=== PATIENT | female | born 1995 | race Caucasian/White ===

== ENCOUNTER 2021-06-29 20:56 | Emergency (ER) | payer OTHER, SELFPAY ==
--- NOTE | ~2021-06-29 | CT_ITS ---
EXAMINATION: CT abdomen pelvis wo con DATE: 06/30/2021 00:23 INDICATION: Bilateral flank pain, dysuria TECHNIQUE: Computed tomography (CT) of the abdomen and pelvis was performed without intravenous contr ast. Automated exposure control and iterative reconstruction technique were employed. Exam dose: 194 .32 mGy-cm total exam DLP. COMPARISON: None. FINDINGS: Minimal bilateral lower lobe dependent atelectasis. Normal heart size. No pericardial or pleural effusion. The liver, gallbladder, bile ducts, spleen, pancreas and pancreatic duct are unremarkable. Normal morphology of the adrenal glands. No renal mass lesion or urinary tract calculus or hydroureteronephrosis is evident. The urinary bladd er is unremarkable. Approximately 3.5 x 3.2 x 2.9 cm circumscribed heterogeneous predominantly fat attenuating lesion in the left adnexa is likely due to dermoid. Retroverted uterus. Normal caliber of the abdominal aorta. No intraperitoneal or retroperitoneal or pelvic mass lesion or adenopathy or ascites. Minimal colonic diverticulosis. No CT evidence of diverticulitis. No bowel obstruction, bowel wall th ickening, pneumatosis or intraperitoneal free air. Small fat-containing umbilical hernia. IMPRESSION: Left ovarian dermoid Retroverted uterus Reviewed, dictated and finalized at [facility]. Reviewed, dictated and finalized at [facility].
[2021-06-29 21:40] VITALS: BP 118/71; PULSE 113; RESP 14; TEMP 37; O2SAT 100
[2021-06-29 22:45] VITALS: BP 117/74; PULSE 99; RESP 16; O2SAT 99
[2021-06-29 22:51] LABS: Basophils Absolute Auto 0.1 K/mm3 (0.0-0.1); Basophils Percent Auto 0.7 % (0.2-1.2); Eosinophils Absolute Auto 0.2 K/mm3 (0-0.3); Eosinophils Percent Auto 3.4 % (0-4.4); Hematocrit 35.6 % (37.0-47.0); Immature Granulocyte Absolute 0.02 K/mm3 (0.00-0.031); Immature Granulocyte Percent A 0.3 % (0-0.5); Lymphocytes Absolute Auto 1.56 K/mm3 (0.9-3.2); Lymphocytes Percent Auto 22.9 % (18.3-44.2); Mean Corpuscular HGB Conc 28.1 g/dl (32-36); Mean Corpuscular Hemoglobin 20.2 pg (26-34); Mean Corpuscular Volume 71.8 fl (80-100); Mean Platelet Volume 10.8 fl (7.4-10.4); Monocytes Absolute Auto 0.8 K/mm3 (0.1-0.6); Monocytes Percent Auto 11.3 % (2.6-8.5); Neutrophils Absolute Auto 4.2 K/mm3 (1.3-6.7); Neutrophils Percent Auto 61.4 % (45.5-73.1); Platelet Count Result 260 k/mm3 (150-375); Red Blood Count 4.96 M/mm3 (4.2-5.4); White Blood Count 6.8 K/mm3 (4.5-10.0)
[2021-06-29 22:53] LABS: Alanine Aminotransferase 15 U/L (4-35); Albumin Level 4.1 g/dL (3.5-5.1); Alkaline Phosphatase 75 U/L (38-126); Anion Gap 7 mmol/L (8-16); Aspartate Amino Transferase 25 U/L (14-36); Bilirubin,Total 0.3 mg/dL (0.2-1.3); Blood Urea Nitrogen 9 mg/dL (7-17); Calcium 9.7 mg/dL (8.4-10.2); Carbon Dioxide 24 mmol/L (22-30); Chloride 108 mmol/L (98-107); Estimated CRCL calculation 117 ml/min; Estimated Glomerular Filt Rate > 60; Glucose 97 mg/dL (65-110); Lipase 130 U/L (23-300); Potassium 3.6 mmol/L (3.4-5.0); Sodium 139 mmol/L (137-145)
[2021-06-29 23:09] LABS: Add Urine Microscopic? YES; Appearance Urine Clear (Clear); Bilirubin Urine 1+ (Negative); Blood Urine Negative (Negative); Color Urine Yellow (Yellow); Glucose Urine UA Negative (Negative); Ketones Urine Negative (Negative); Leukocyte Esterase Ur Trace LEU/UL (Negative); Mucus Urine Heavy /lpf; Nitrate Urine Negative (Negative); Protein Urine 1+ mg/dL (Negative); RBC Urine 0-2 /hpf (0-2); Squamous Epithelial Cell Urine Many /hpf (Few); WBC Urine 0-3 /hpf
[2021-06-29 23:12] LABS: Anisocytosis 1+ (NORMAL); Platelet Estimate Adequate (Adequate)
--- NOTE | 2021-06-29 23:43 | ED.ABDPAIN ---
HPI - Abdominal Pain General Chief Complaint: Abdominal Pain Stated Complaint: kidney pain Time Seen by Provider: 06/29/21 22:26 Source: patient Mode of arrival: ambulatory Limitations: no limitations History of Present Illness HPI narrative: 26-year-old here with complaints of back pain lower abdominal pain for last 6 months. Patient states that every time in the morning when she urinates she feels like her whole bladder is coming out. She was states that she was scheduled to see a urologist however her primary doctor retired and she is unable to get see a urologist. She presently denies any nausea, vomiting diarrhea or blood in the urine. MD elicited complaint: abdominal pain Pertinent past history: none Location: suprapubic Quality: aching Migration to: no migration Exacerbating factors: other (Urinating) Relieving factors: nothing Associated symptoms: denies other symptoms Related Data Allergies Allergy/AdvReac Type Severity Reaction Status Date / Time No Known Allergies Allergy Unknown Unverified 09/15/16 15:12 Review of Systems Review of Systems: All systems reviewed & are unremarkable except as noted in HPI and below Constitutional: Constitutional: Reports no additional constitutional complaints Eyes: Eyes: Reports no additional eye complaints ENT: Reports system reviewed and no additional complaints, except as documented Cardiovascular: Cardiovascular: Reports no additional cardiovascular complaints Respiratory: Respiratory: Reports no additional respiratory complaints Gastrointestinal: Gastrointestinal: Reports no additional gastrointestinal complaints Genitourinary: Genitourinary: Reports as per HPI Musculoskeletal: Musculoskeletal: Reports no additional musculoskeletal complaints PMFSH Social History Social History Gender identity (if verbalized by the patient): Female Exam Narrative: GENERAL: Well-appearing, well-nourished, and in no acute distress. HEAD: Normocephalic, atraumatic. EYES: PERRLA and EOMI. NECK: Supple. CHEST: Clear to auscultation. No respiratory distress. HEART: Regular rate and rhythm. No murmur heard. Normal peripheral pulses. ABDOMEN: Soft, nontender, nondistended, normal active bowel sounds. no CVA tenderness EXTREMITIES: Normal range of motion. No edema. SKIN: Warm, dry, no rash. NEURO: No focal deficits. Alert and oriented x3. PSYCH: Normal mood and affect. Course Course Emergency Course: Inform patient about her lab work and patient states that we have not done anything for her, she demanded a CAT scan of the abdomen and said even though the labs and urine looked good at not sure what we can see the CAT scan however she was very unhappy I did order a CT of the abdomen Vital Signs Vital signs: Vital Signs Temperature 37.0 C 06/29/21 21:40 Pulse Rate 113 H 06/29/21 21:40 Respiratory Rate 14 06/29/21 21:40 Blood Pressure 118/71 06/29/21 21:40 Pulse Oximetry 100 06/29/21 21:40 Temperature 37.0 C 06/29/21 21:40 Pulse Rate 99 06/29/21 22:45 Respiratory Rate 16 06/29/21 22:45 Blood Pressure 117/74 06/29/21 22:45 Pulse Oximetry 99 06/29/21 22:45 MDM - Abdominal Pain Lab Data Result diagrams: 06/29/21 22:22 06/29/21 22:22 Labs: Lab Results 06/29/21 06/29/21 06/29/21 Range/Units 22:22 22:22 22:49 WBC 6.8 (4.5-10.0) K/mm3 RBC 4.96 (4.2-5.4) M/mm3 Hgb 10.0 L (12.0-15.0) g/dL Hct 35.6 L (37.0-47.0) % MCV 71.8 L (80-100) fl MCH 20.2 L (26-34) pg MCHC 28.1 L (32-36) g/dl RDW 18.0 H (11.5-14.5) % Plt Count 260 (150-375) k/mm3 MPV 10.8 H (7.4-10.4) fl Immature Gran % (Auto) 0.3 (0-0.5) % Neut % (Auto) 61.4 (45.5-73.1) % Lymph % (Auto) 22.9 (18.3-44.2) % [place] % (Auto) 11.3 H (2.6-8.5) % Eos % (Auto) 3.4 (0-4.4) % Baso % (Auto) 0.7 (0.2-1.2) % Lymph # (Auto) 1.56
[2021-06-30] VITALS: BP 128/78; PULSE 102; RESP 20; O2SAT 100
[2021-06-30] MEDS: KETOROLAC 30 MG/ML VIAL (*BKC) IM (00:38)
[2021-06-30 01:00] VITALS: BP 122/77; PULSE 99; RESP 14; O2SAT 97
== END 2021-06-30 01:30 | disposition home or self-care (01) ==
PROVIDERS: Emergency Medicine; Emergency Provider Family Medicine
DX: R10.84 Generalized abdominal pain (principal)
CPT/HCPCS: 36415; 74176; 80053; 81001; 81025; 83690; 85025; 96372; 99284; J1885